=== PATIENT | male | born 1980 ===

== ENCOUNTER 2018-09-14 11:20 | Emergency (ER) | payer SELFPAY ==
[~2018-09-14] VITALS: Ht 175.3 cm; Wt 74.8 kg
[~2018-09-14 11:20] MED LIST: AMOX500 PO; HYDACE5 PO; HYDACE5325 PO; HYDR1TAB94 PO; IBUP800 PO; MAGCIT300 PO; NAPR500; NAPR500 PO; NAPR550 PO; NEOPOLDEXS LEFTEYE
[2018-09-14] MEDS ORDERED: CYCL10 PO (12:03)
[2018-09-14] MEDS ORDERED: Percocet 5-3251 EACH PO (12:03)
[2018-09-14] MEDS ORDERED: Voltaren100 GM TOP (12:03)
[2018-09-14] MEDS ORDERED: Prednisone20 MG PO (12:03)
== END 2018-09-14 12:26 | disposition home or self-care (01) ==
LOC: ER 11:20
DX: S39.012A Strain of muscle, fascia and tendon of lower back, initial encounter (principal); F17.210 Nicotine dependence, cigarettes, uncomplicated; Z88.0 Allergy status to penicillin; X58.XXXA Exposure to other specified factors, initial encounter
CPT/HCPCS: 96372; 99283-25; J1885